=== PATIENT | male | born 1970 | race Native Hawaiian/Other Pacific Islander ===

== ENCOUNTER 2019-03-28 16:05 | Emergency (ER) | payer OTHER ==
[~2019-03-28] VITALS: Ht 193 cm; Wt 147.4 kg
[2019-03-28 16:05] VITALS: TEMP 97.2
[2019-03-28] MEDS ORDERED: ISOS30TA17 PO (16:14)
[2019-03-28] MEDS ORDERED: LISI20TA11 PO (16:14)
[2019-03-28] MEDS ORDERED: ASPIRIN 81 LOW81 MG PO (16:14)
[2019-03-28] MEDS ORDERED: IBU800 MG PO (16:14)
[2019-03-28] MEDS ORDERED: ATEN50TA36 PO (16:15)
[2019-03-28] MEDS ORDERED: ROBAXIN-750750 MG PO (16:18)
[2019-03-28] MEDS ORDERED: CLONIDINE HYDR0.2 MG PO (16:18)
[2019-03-28] MEDS ORDERED: VENLAFAXINE150 M1 PO (16:18)
[2019-03-28] MEDS ORDERED: GEODON60 MG PO (16:19)
[2019-03-28] MEDS ORDERED: VENLAFAXINE75 M2 PO (16:19)
[2019-03-28] MEDS ORDERED: ZIPRASIDONE HYD40 MG PO (16:23)
[2019-03-28] MEDS ORDERED: BUSPIRONE10 MG PO (16:23)
[2019-03-28] MEDS ORDERED: TRAZ100T PO (16:24)
[2019-03-28] MEDS ORDERED: LAMICTAL25 MG PO (16:25)
[2019-03-28] MEDS ORDERED: LAMICTAL100 MG PO (16:25)
[2019-03-28 17:38] VITALS: BP 148/55
== END 2019-03-28 17:38 ==
LOC: ED 16:11
DX: S96.911A Strain of unspecified muscle and tendon at ankle and foot level, right foot, initial encounter (principal); X50.1XXA Overexertion from prolonged static or awkward postures, initial encounter; Y93.E1 Activity, personal bathing and showering; Y92.149 Unspecified place in prison as the place of occurrence of the external cause
CPT/HCPCS: 96372; 99283; J1885